=== PATIENT | female | born 1950 | race Caucasian/White ===

== ENCOUNTER 2018-09-02 10:04 | Day surgery (SDC) | payer OTHER ==
[2018-09-02] MEDS ORDERED: MIDAZOLAM 1 MG/ML 2 ML INJ ×3 (12:50)
[2018-09-02] MEDS ORDERED: FENTAnyl 50 MCG/ML VIAL (12:50)
== END 2018-09-02 13:54 | disposition home or self-care (01) ==
LOC: GIL 10:04
DX: K21.9 Gastro-esophageal reflux disease without esophagitis (principal); K29.30 Chronic superficial gastritis without bleeding; K64.8 Other hemorrhoids; D64.9 Anemia, unspecified; I10 Essential (primary) hypertension
CPT/HCPCS: 43239; 88305; 88312